=== PATIENT | female | born 1955 | race Caucasian/White ===

== ENCOUNTER 2021-09-29 10:00 | Day surgery (SDC) | payer MEDICARE, OTHER ==
[~2021-09-29 10:00] MED LIST: Lactated Ringers 1,000 ML IV SCH; Lidocaine 1%/Sod Bicarbonate in NS 8.4% 1 ML Syringe IDERM PRN; Morphine 8 MG, EPINEPHrine 0.3 MG, Cefuroxime 750 MG, Ketorolac 30 MG, Sodium Chloride ... PRN; Sodium Chloride 0.9% 10 ML Syringe FLUSH PRN; Sodium Chloride 0.9% 10 ML Syringe FLUSH SCH
[2021-09-29] MEDS ORDERED: Propofol 200 MG/20 ML SDV ONE (11:11)
[2021-09-29] MEDS ORDERED: Midazolam 1 MG/ML 2 ML SDV ONE (11:11)
[2021-09-29] MEDS ORDERED: Lactated Ringers 1,000 ML ONE (11:11)
[2021-09-29] MEDS ORDERED: ceFAZolin 2 GM Vial ONE (11:11)
[2021-09-29] MEDS ORDERED: fentaNYL 100 MCG/2 ML SDV ONE (11:11)
[2021-09-29] MEDS ORDERED: Vancomycin 1 GM SDV ONE (11:21)
[2021-09-29] MEDS ORDERED: Lidocaine 1% 5 ML VIAL ONE (14:08)
[2021-09-29] MEDS ORDERED: Ketorolac 30 MG/ML SDV ONE (14:30)
[2021-09-29] MEDS ORDERED: Ondansetron 4 MG/2 ML SDV ONE (14:30)
[2021-09-29] MEDS ORDERED: fentaNYL 100 MCG/2 ML SDV IVPUSH PRN (14:37)
[2021-09-29] MEDS ORDERED: Ondansetron 4 MG/2 ML SDV IVPUSH PRN (14:37)
[2021-09-29] MEDS ORDERED: diphenhydrAMINE 50 MG/ML SDV IVPUSH PRN (14:37)
== END 2021-09-29 19:31 | disposition home or self-care (01) ==
LOC: JD.SDS 10:00
PROVIDERS: ATTEND Orthopaedic Surgery
DX: M16.0 Bilateral primary osteoarthritis of hip (principal); I10 Essential (primary) hypertension; F41.9 Anxiety disorder, unspecified; E78.00 Pure hypercholesterolemia, unspecified; K21.9 Gastro-esophageal reflux disease without esophagitis; M51.36 Other intervertebral disc degeneration, lumbar region; Z88.1 Allergy status to other antibiotic agents; Z90.49 Acquired absence of other specified parts of digestive tract; Z98.890 Other specified postprocedural states; Z86.79 Personal history of other diseases of the circulatory system; Z79.2 Long term (current) use of antibiotics; Z86.16 Personal history of COVID-19; Z79.82 Long term (current) use of aspirin; Z79.891 Long term (current) use of opiate analgesic; Z79.899 Other long term (current) drug therapy
CPT/HCPCS: 0055T; 27130; 36415; 73501; 86850; 86900; 86901; 97110; 97116; 97161; C1713; C1776; J0171; J0690; J0697; J1885; J2250; J2270; J2405; J2704; J3010; J3370; J7120; 01214

== ENCOUNTER 2024-04-12 07:44 | Day surgery (SDC) | payer MEDICARE, OTHER ==
[~2024-04-12 07:44] MED LIST changes: -Lactated Ringers 1,000 ML IV SCH; -Lidocaine 1%/Sod Bicarbonate in NS 8.4% 1 ML Syringe IDERM PRN; -Morphine 8 MG, EPINEPHrine 0.3 MG, Cefuroxime 750 MG, Ketorolac 30 MG, Sodium Chloride ... PRN
[2024-04-12] MEDS ORDERED: Lidocaine 1% 4 ML ONE (08:14)
[2024-04-12] MEDS ORDERED: Propofol 200 MG/20 ML SDV ONE (08:14)
[2024-04-12] MEDS: Lactated Ringers 1,000 ML IV SCH (08:15)
[2024-04-12] MEDS: Bupivacaine 0.5% 30 ML SDV ONE (09:03)
== END 2024-04-12 09:49 | disposition home or self-care (01) ==
LOC: JD.SDS 07:44
PROVIDERS: ATTEND Surgery
DX: D12.5 Benign neoplasm of sigmoid colon (principal); K57.31 Diverticulosis of large intestine without perforation or abscess with bleeding; K64.8 Other hemorrhoids; K64.4 Residual hemorrhoidal skin tags; E78.5 Hyperlipidemia, unspecified; I10 Essential (primary) hypertension
CPT/HCPCS: 45380; 46221; 88305; J0665; J2704; J7120; 00811; 99100; J3490